=== PATIENT | male | born 1950 | race Caucasian/White ===

== ENCOUNTER → 2016-09-21 | Outpatient (CLI) | payer MEDICARE, OTHER ==
[~2016-09-21] MED LIST: AFRIN) (GENASAL15 ML NOSE; ANORO ELLIPTA1 EACH INH; BYSTOLIC10 MG PO; PHENERGAN25 M1 PO; PROTONIX40 MG PO; PROVENTIL OR V6.7 GM INH
== END | disposition disaster alternative care site (69) ==
LOC: LKCL 10:42
DX: R19.7 Diarrhea, unspecified (principal)

== ENCOUNTER → 2016-10-29 | Outpatient (CLI) | payer MEDICARE, OTHER | END | disposition disaster alternative care site (69) | LOC: GRAD 14:50 | DX: R10.9 Unspecified abdominal pain (principal); R11.2 Nausea with vomiting, unspecified; R63.4 Abnormal weight loss; Z90.49 Acquired absence of other specified parts of digestive tract | CPT/HCPCS: Q9967 ==

== ENCOUNTER → 2016-11-15 | Day surgery (SDC) | payer MEDICARE, OTHER ==
[~2016-11-15] VITALS: Ht 170.2 cm; Wt 80.0 kg
== END | disposition disaster alternative care site (69) ==
LOC: GPOC 11-13 15:00 → GEND 07:00
PROC: 0DB98ZX Excision of Duodenum, Via Natural or Artificial Opening Endoscopic, Diagnostic (ICD-10-PCS; principal; 2016-11-15)
DX: K31.84 Gastroparesis (principal); D72.820 Lymphocytosis (symptomatic); R63.4 Abnormal weight loss; I10 Essential (primary) hypertension; M19.90 Unspecified osteoarthritis, unspecified site; Z79.899 Other long term (current) drug therapy; Z98.890 Other specified postprocedural states
CPT/HCPCS: J2001; J7030

== ENCOUNTER → 2016-11-19 | Outpatient (CLI) | payer MEDICARE, OTHER | END | disposition disaster alternative care site (69) | LOC: GRAD 10:49 | DX: K31.84 Gastroparesis (principal) ==